=== PATIENT | male | born 1955 | race Caucasian/White ===

== ENCOUNTER 2016-09-05 11:18 | Outpatient (CLI) | payer MEDICARE, MEDICAID ==
[2016-09-05 16:51] LABS: ALT (SGPT) 28 U/L (8-55); AST (SGOT) 30 U/L (5-34); Albumin 3.9 g/dL (3.5-5.0); Alkaline Phosphatase 85 U/L (40-150); Anion Gap 15 mmol/L (10-20); BUN (Urea Nitrogen) 12 mg/dL (8.4-25.7); Bilirubin, Total 2.4 mg/dL (0.2-1.2); Calc. Creatinine Clearance 0 mL/min (70-130); Calcium 8.9 mg/dL (7.8-10.44); Carbon Dioxide 27 mmol/L (22-29); Chloride 103 mmol/L (98-107); Cholesterol 131 mg/dl (< 200 Desired); Estimated GFR-MDRD 48; Globulin 4.1 g/dL (2.4-3.5); Glucose 88 mg/dL (70-105); HDL Cholesterol 33 mg/dL (>60 Neg Risk); LDL Cholesterol, Calculated 73 mg/dL; Potassium 5.7 mmol/L (3.5-5.1); Sodium 139 mmol/L (136-145); Triglycerides 127 mg/dL (Less than 150)
[2016-09-05 18:19] LABS: #Basophils 0.1 thou/uL (0.0-0.2); #Eosinphils 0.1 thou/uL (0.0-0.7); #Lymphocytes 1.6 thou/uL (1.20-3.40); #Monocytes 0.4 thou/uL (0.11-0.59); #Neutrophils 3.1 thou/uL (1.40-6.50); %Basophils 2.7 % (0.0-1.0); %Eosinophils 1.4 % (0.0-10.0); %Lymphocytes 29.2 % (21.0-51.0); %Monocytes 7.5 % (0.0-10.0); %Neutrophils 59.2 % (42.0-75.0); Hemoglobin 19.9 g/dL (14.0-18.0); MDiff Complete? YES; Macrocytosis SLIGHT = 6-15 cells (100X) (0-5/hpf); Mean Corpuscular HGB CONC 32.3 g/dL (32.0-36.0); Mean Corpuscular Hemoglobin 33.7 pg (27.0-31.0); Mean Platelet Volume 8.4 fL (7.4-10.4); Platelet Count 204 thou/uL (130-400); RBC Distribution Width 12.6 % (11.5-14.5); RBC Morphology PATIENT HAS POLYCYTHEMIA; Red Blood Cell (RBC) Count 5.92 mill/uL (4.70-6.10); White Blood Cell (WBC) Count 5.3 thou/uL (4.8-10.8)
[2016-09-05 18:40] LABS: Creatinine, Urine 106.51 mg/dL (63-166); Microalbumin Urine Less than 1.0 mg/dL (0.5-50.0); Microalbumin/Creat Ratio 9.4 mg/g (Less than 30)
== END 2016-09-05 11:19 | disposition home or self-care (01) ==
LOC: LABLEX 11:18
PROVIDERS: ATTEND Family Medicine
DX: I12.9 Hypertensive chronic kidney disease with stage 1 through stage 4 chronic kidney disease, or unspecified chronic kidney disease (principal); N18.9 Chronic kidney disease, unspecified; E78.5 Hyperlipidemia, unspecified; E03.9 Hypothyroidism, unspecified; D75.1 Secondary polycythemia
CPT/HCPCS: 80053; 80061; 82043; 84443; 85025

== ENCOUNTER 2016-09-08 15:15 | Emergency (ER) | payer MEDICARE, MEDICAID ==
[2016-09-08 15:49] LABS: Band 1 % (5-11); Eosinophils 2 % (0-10); Hemoglobin 17.7 g/dL (14.0-18.0); Lymphocytes 27 % (21-51); MDiff Complete? YES; Macrocytosis SLIGHT = 6-15 cells (100X) (0-5/hpf); Mean Corpuscular HGB CONC 34.2 g/dL (32.0-36.0); Mean Corpuscular Hemoglobin 34.6 pg (27.0-31.0); Monocytes 9 % (0-10); Neutrophil 61 % (42-75); Platelet Count 206 thou/uL (130-400); RBC Distribution Width 12.2 % (11.5-14.5)
[2016-09-08 16:03] LABS: ALT (SGPT) 27 U/L (8-55); AST (SGOT) 31 U/L (5-34); Albumin 3.6 g/dL (3.5-5.0); Alkaline Phosphatase 71 U/L (40-150); Anion Gap 15 mmol/L (10-20); BUN (Urea Nitrogen) 14 mg/dL (8.4-25.7); Bilirubin, Total 1.7 mg/dL (0.2-1.2); Calc. Creatinine Clearance 0 mL/min (70-130); Calcium 8.9 mg/dL (7.8-10.44); Carbon Dioxide 24 mmol/L (22-29); Chloride 105 mmol/L (98-107); Estimated GFR-MDRD 47; Glucose 99 mg/dL (70-105); Magnesium 2.6 mg/dL (1.6-2.6); Potassium 4.7 mmol/L (3.5-5.1); Protein, Total 7.6 g/dL (6.0-8.3); Sodium 139 mmol/L (136-145)
== END 2016-09-08 16:13 | disposition home or self-care (01) ==
LOC: BURERS 15:15
DX: N18.9 Chronic kidney disease, unspecified (principal); E87.5 Hyperkalemia; E78.00 Pure hypercholesterolemia, unspecified; Q90.9 Down syndrome, unspecified; E80.4 Gilbert syndrome; E03.9 Hypothyroidism, unspecified
CPT/HCPCS: 36415; 80053; 83735; 85025

== ENCOUNTER 2016-09-15 08:51 | Outpatient (CLI) | payer MEDICARE, MEDICAID ==
[2016-09-15 10:05] LABS: ALT (SGPT) 32 U/L (8-55); AST (SGOT) 33 U/L (5-34); Albumin 4.2 g/dL (3.5-5.0); Alkaline Phosphatase 84 U/L (40-150); Anion Gap 13 mmol/L (10-20); BUN (Urea Nitrogen) 12 mg/dL (8.4-25.7); Bilirubin, Total 2.7 mg/dL (0.2-1.2); Calc. Creatinine Clearance 0 mL/min (70-130); Calcium 9.3 mg/dL (7.8-10.44); Carbon Dioxide 29 mmol/L (22-29); Chloride 103 mmol/L (98-107); Estimated GFR-MDRD 46; Glucose 85 mg/dL (70-105); Potassium 4.6 mmol/L (3.5-5.1); Protein, Total 8.2 g/dL (6.0-8.3); Sodium 140 mmol/L (136-145)
[2016-09-15 10:44] LABS: Hemoglobin 19.7 g/dL (14.0-18.0); Mean Corpuscular HGB CONC 33.5 g/dL (32.0-36.0); Mean Corpuscular Hemoglobin 34.4 pg (27.0-31.0); Mean Platelet Volume 9.9 fL (7.4-10.4); Platelet Count 195 thou/uL (130-400); RBC Distribution Width 12.2 % (11.5-14.5); Red Blood Cell (RBC) Count 5.73 mill/uL (4.70-6.10); White Blood Cell (WBC) Count 5.5 thou/uL (4.8-10.8)
[2016-09-15 17:35] LABS: Iron 73 ug/dL (65-175); Iron Binding Capacity, Total 240 mcg/dL (261-462)
[2016-09-15 17:53] LABS: Ferritin 46.68 ng/mL (22-322)
[2016-09-15 18:07] LABS: HBSAB Concentration 6.18 mIU/mL; Hep B Surf AB Non-Reactive (NonReactive)
[2016-09-15 19:14] LABS: Hep B Surf Ag Reactive S/CO (NonReactive)
[2016-09-15 19:15] LABS: HBSAg Index 1.35 S/CO (0-0.99)
--- NOTE | 2016-09-15 19:42 | ULT ---
RIGHT UPPER QUADRANT ULTRASOUND: Date: 09-15-16 Comparison: 12-07-15 FINDINGS: There has been no adverse interval change. The liver measures 14.1 cm in oblique sagittal length. In ternally, one sees no focal mass or dilated duct. It was commented on the prior ultrasound that the internal vessels of the liver seemed a bit more prominent in size than the study before. These vesse ls remain rather prominent in size today, though they are not much different than the last study. He patic portal flow is towards the liver as expected. The gallbladder was not visualized. The common bile duct was 6 mm in caliber which is borderline. Th e pancreas was completely obscured by gas as before. The right kidney showed no abnormality and was 8.3 cm long. IMPRESSION: No adverse change since the prior study. Hepatic vessels internally are larger than often seen, but no different than the last study. POS: HOME
== END 2016-09-15 08:52 | disposition home or self-care (01) ==
LOC: BURLAB 08:51
PROVIDERS: ATTEND Internal Medicine Gastroenterology
DX: B19.10 Unspecified viral hepatitis B without hepatic coma (principal); D75.1 Secondary polycythemia; R94.5 Abnormal results of liver function studies
CPT/HCPCS: 36415; 76705; 80053; 82105; 82728; 83516; 83540; 83550; 85027; 86038; 86706; 86707; 87340; 87517

== ENCOUNTER 2017-03-07 09:03 | Outpatient (CLI) | payer MEDICARE, MEDICAID ==
--- NOTE | 2017-03-07 19:37 | ULT ---
RIGHT UPPER QUADRANT ULTRASOUND 03/07/17 Comparison is made with a 09/15/16 study. The liver continues to appear normal and measures 12.7 cm in oblique sagittal length. No masses or di lated ducts were seen. The gallbladder was not visualized today. The common bile duct is 6 mm in michelle ad which is upper normal. Portal venous flow was towards the liver as expected. The right kidney mceca ears normal and was 8.1 cm in length. IMPRESSION: Unremarkable right upper quadrant ultrasound. No hepatic abnormalities of concern. Gallbladder not se en. POS: HOME
== END 2017-03-07 09:04 | disposition home or self-care (01) ==
LOC: BURULT 09:03
PROVIDERS: ATTEND Internal Medicine Gastroenterology
DX: Z12.11 Encounter for screening for malignant neoplasm of colon (principal); D75.1 Secondary polycythemia; B19.10 Unspecified viral hepatitis B without hepatic coma; R94.5 Abnormal results of liver function studies
CPT/HCPCS: 76705

== ENCOUNTER 2018-01-16 08:28 | Outpatient (CLI) | payer MEDICARE, MEDICAID ==
--- NOTE | 2018-01-16 10:20 | ULT ---
RIGHT UPPER QUADRANT ULTRASOUND: Date: 01/16/18 HISTORY: Hepatitis C. FINDINGS: Comparison made with exam of 03/07/17. The liver demonstrates homogeneous echotexture without focal mass or intrahepatic ductal dilatation. The gallbladder is not seen (not visualized on previous exam as well). The common duct measures 4.0 m m in diameter. The right kidney is normal. No free fluid is seen in Morison's pouch. The pancreas is not well visualized due to overlying bowel gas. IMPRESSION: No evidence of hepatic mass. POS: [facility]
[2018-01-16 17:50] LABS: ALT (SGPT) 14 U/L (8-55); AST (SGOT) 17 U/L (5-34); Albumin 3.4 g/dL (3.4-4.8); Alkaline Phosphatase 90 U/L (40-150); Anion Gap 13 mmol/L (10-20); BUN (Urea Nitrogen) 18 mg/dL (8.4-25.7); Bilirubin, Total 1.2 mg/dL (0.2-1.2); Calc. Creatinine Clearance 0 mL/min (70-130); Calcium 8.8 mg/dL (7.8-10.44); Carbon Dioxide 29 mmol/L (23-31); Chloride 102 mmol/L (98-107); Estimated GFR-MDRD 48; Globulin 4.1 g/dL (2.4-3.5); Glucose 86 mg/dL (80-115); Potassium 4.2 mmol/L (3.5-5.1); Protein, Total 7.5 g/dL (5.8-8.1); Sodium 140 mmol/L (136-145)
[2018-01-16 18:04] LABS: HBSAg Index 0.71 S/CO (0-0.99); Hep B Surf Ag Non-Reactive S/CO (NonReactive)
[2018-01-16 18:08] LABS: #Basophils 0.1 thou/uL (0.0-0.2); #Eosinphils 0.5 thou/uL (0.0-0.7); #Lymphocytes 1.9 thou/uL (1.20-3.40); #Monocytes 0.5 thou/uL (0.11-0.59); #Neutrophils 3.8 thou/uL (1.40-6.50); %Eosinophils 6.9 % (0.0-10.0); %Lymphocytes 27.5 % (21.0-51.0); %Neutrophils 56.6 % (42.0-75.0); Hemoglobin 16.4 g/dL (14.0-18.0); Mean Corpuscular HGB CONC 32.6 g/dL (32.0-36.0); Mean Corpuscular Hemoglobin 34.2 pg (27.0-31.0); Mean Platelet Volume 8.4 fL (7.4-10.4); Platelet Count 301 thou/uL (130-400); RBC Distribution Width 13.1 % (11.5-14.5); Red Blood Cell (RBC) Count 4.79 mill/uL (4.70-6.10); White Blood Cell (WBC) Count 6.7 thou/uL (4.8-10.8)
[2018-01-16 19:18] LABS: HBSAB Concentration 10.47 mIU/mL; Hep B Surf AB EQUIVOCAL (NonReactive)
[2018-01-19 14:12] LABS: HBV as IU/mL HBV DNA not detected IU/mL (.)
== END 2018-01-16 08:29 | disposition home or self-care (01) ==
LOC: BURULT 08:28
PROVIDERS: ATTEND Internal Medicine Gastroenterology
DX: B19.10 Unspecified viral hepatitis B without hepatic coma (principal); B18.1 Chronic viral hepatitis B without delta-agent
CPT/HCPCS: 36415; 76705; 80053; 82105; 85025; 86706; 86707; 87340; 87350; 87517

== ENCOUNTER 2019-05-27 10:08 | Outpatient (CLI) | payer MEDICARE, MEDICAID ==
--- NOTE | 2019-05-27 12:42 | ULT ---
Sonogram right upper quadrant HISTORY: Abnormal liver function tests. FINDINGS: Gallbladder surgically absent. Common duct is 0.6 cm. The liver has a normal appearance wit hout focal mass or intrahepatic biliary dilatation. Left lobe partially obscured by bowel gas. No free fluid. IMPRESSION: Status post cholecystectomy. No evidence of acute biliary obstruction. Normal sonographic appearance of the liver.
[2019-05-27 16:32] LABS: ALT (SGPT) 22 U/L (8-55); AST (SGOT) 22 U/L (5-34); Albumin 3.6 g/dL (3.4-4.8); Alkaline Phosphatase 93 U/L (40-110); Bilirubin, Direct 0.7 mg/dL (0.1-0.3); Bilirubin, Total 2.2 mg/dL (0.2-1.2); Protein, Total 7.5 g/dL (5.8-8.1)
[2019-05-28 14:57] LABS: Ref Lab Test Ordered HBV DNA QUANT; Reference Lab Name LABCORP
== END 2019-05-27 10:09 | disposition home or self-care (01) ==
LOC: BURULT 10:08
PROVIDERS: ATTEND Internal Medicine Gastroenterology
DX: E80.4 Gilbert syndrome (principal); B19.10 Unspecified viral hepatitis B without hepatic coma; Z90.49 Acquired absence of other specified parts of digestive tract
CPT/HCPCS: 36415; 76705; 80076; 82105

== ENCOUNTER 2020-03-07 19:57 | Inpatient (IN) | payer MEDICARE, MEDICAID ==
[2020-03-07 20:48] LABS: Hemoglobin 18.4 g/dL (14.0-18.0); Mean Corpuscular HGB CONC 32.7 g/dL (32.0-36.0); Mean Corpuscular Hemoglobin 34.1 pg (27.0-31.0); Mean Platelet Volume 9.5 fL (7.4-10.4); Platelet Count 203 thou/uL (130-400); RBC Distribution Width 13.6 % (11.5-14.5); White Blood Cell (WBC) Count 18.4 thou/uL (4.8-10.8)
[2020-03-07 21:02] LABS: ALT (SGPT) 25 U/L (8-55); AST (SGOT) 28 U/L (5-34); Albumin 3.6 g/dL (3.4-4.8); Alkaline Phosphatase 82 U/L (40-110); Anion Gap 17 mmol/L (10-20); BUN (Urea Nitrogen) 18 mg/dL (8.4-25.7); Bilirubin, Total 1.6 mg/dL (0.2-1.2); Calc. Creatinine Clearance 0 mL/min (70-130); Calcium 8.7 mg/dL (7.8-10.44); Carbon Dioxide 24 mmol/L (23-31); Chloride 96 mmol/L (98-107); Globulin 4.6 g/dL (2.4-3.5); Glucose 163 mg/dL (80-115); Potassium 4.3 mmol/L (3.5-5.1); Protein, Total 8.2 g/dL (5.8-8.1); Sodium 133 mmol/L (136-145)
[2020-03-07 21:10] LABS: Band 4 % (5-11); Lymphocytes 2 % (21-51); MDiff Complete? YES; Monocytes 3 % (0-10); Neutrophil 91 % (42-75); Platelet Morphology Comment Appears Adequate; RBC Morphology Normal
--- NOTE | 2020-03-07 21:12 | CT ---
CT BRAIN WITHOUT CONTRAST: Date: 03-07-[address] was done for evaluation of a syncopal episode. FINDINGS: The ventricles are normal in size for age and atrophy. No intracranial bleeding, mass, or sign of acu te stroke was found. Atrophy is a little more prominent than usual for age. The skull appears intact and the visible paranasal sinuses are clear. Each globe is calcified to some extent and the right jada be is flattened. This is presumed to be chronic. IMPRESSION: No acute intracranial findings. POS: HOME
[2020-03-07] MEDS ORDERED: cefTRIAXone\\ROCEPHIN 1 GM VIAL ONE (21:13)
--- NOTE | 2020-03-07 21:14 | RAD ---
PORTABLE CHEST: Date: 03-07-2020 An AP portable film at 2047 is presented with no prior films available for comparison. FINDINGS: The heart is normal in size. There is no major lobar infiltrate or effusion. Minimal haziness in the left base is probably due to the patient being turned to the right slightly. There is no congestive f inding. IMPRESSION: No definite acute change. POS: HOME
[2020-03-07 21:18] LABS: Bilirubin Negative (Negative); Blood, Urine Negative (Negative); Clarity Clear (Clear); Glucose, Urine (Dipstick) Negative (Negative); Ketone, Urine Negative (Negative); Leukocyte Negative (Negative); Nitrite Negative (Negative); Protein, Urine (Dipstick) Negative (Neg-Trace); Urobilinogen 0.2 mg/dL (Less than 2)
[2020-03-07 22:27] LABS: SARS-CoV-2 NAA Rapid Test DETECTED (NotDetected)
[2020-03-07 23:28] VITALS: BMI 26.2
[2020-03-08] MEDS: Sodium Chloride 0.9% 1,000 ML IV SCH ×2 (00:57→07:25)
[2020-03-08] MEDS ORDERED: Piperacillin/Tazobactam 3.375 GM in Sodium Chloride 0.9% 100 ML IVPB SCH ×2 (02:00→12:00)
[2020-03-08] MEDS ORDERED: Mometasone Furoate 120 PUFF 220 MCG INH SCH (07:00)
[2020-03-08] MEDS ORDERED: Sodium Chloride 0.9% 1,000 ML IV SCH (07:08)
[2020-03-08] MEDS: Fluticasone Propionate Nasal Spray 16 gm Bottle NASAL SCH (08:00)
[2020-03-08] MEDS: Saccharomyces boulardii 250 MG CAP PO SCH (08:01)
[2020-03-08] MEDS: Levothyroxine Sodium 50 MCG TAB PO SCH (08:02)
[2020-03-08] MEDS: Dexamethasone 4 MG TAB PO SCH (08:02)
[2020-03-08] MEDS: Aspirin 81 mg Enteric Coated Tablet PO SCH (08:02)
[2020-03-08] MEDS ORDERED: Aspirin 81 mg Enteric Coated Tablet PO SCH (09:00)
[2020-03-08] MEDS ORDERED: FLUTICASONE PROPIONATE NS SCH (09:00)
--- NOTE | 2020-03-08 11:03 | HP ---
CHIEF COMPLAINT: Fever and syncope. HISTORY OF PRESENT ILLNESS: This is a 64-year-old male with underlying Down syndrome, blindness, and partial deafness who is cared for by his welfare interviewer of 20+ years, Jamilah Singleton, who is with him at present who presented acutely to the [facility] Emergency Department last night. Per the patient's welfare interviewer while after just finishing his evening meal, he had a syncopal episode, falling forward from his chair with subsequent seizure-like activity thereafter. In the emergency department, the patient was found to be tachycardic and febrile. Workup revealed leukocytosis with left shift and elevated lactic acid level. Imaging including a chest x-ray and brain CT were reassuring, and there was no obvious source of bacterial infection. The patient was swabbed for influenza and COVID, and COVID test returned positive. The patient was admitted to the floor and started on broad-spectrum IV antibiotic therapy with vancomycin and Rocephin, and normal saline IV fluids as well. As of this morning, patient's welfare interviewer reports that the patient had been in his usual state of health until the episode occurring last night. His intake has been at baseline as has his output. His behavior has been unchanged, and he has complained of no pain. Only reported symptoms would be that of what the welfare interviewer describes as the patient has seasonal allergies. She does report that he was treated for urinary tract infection within the last month, and his urinalysis is notably normal here. Patient's welfare interviewer reports no prior history of seizures. At present, the patient is comfortable and is stable on room air. 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 SURGICAL HISTORY: Bilateral enucleation, urethral surgery for stricture. SOCIAL HISTORY: The patient lives in [place] with his caregiver, Jamilah Singleton for the last 20+ years. Nonsmoker, with no alcohol or illicit drug use. ALLERGIES: AMOXICILLIN/AUGMENTIN. FAMILY HISTORY: Noncontributory. HOME MEDICATIONS: 1. Rosuvastatin 10 mg q.h.s. 2. Levothyroxine 50 mcg p.o. daily. 3. Aspirin 81 mg 2 tabs daily. 4. Fluticasone 1-2 sprays each nostril daily. REVIEW OF SYSTEMS: Unable to obtain from patient. LABORATORY DATA: White blood cell count is 18.4, hemoglobin is 18.4, hematocrit 56.3, platelets 203. Sodium 133, potassium 4.3, BUN is 18, creatinine 1.5, GFR is 47, glucose 163. Initial lactic acid 4.2, its 3.0 upon recheck. Bilirubin 1.6, AST 28, ALT 25. Urine is clear with no glucose, no ketones, no blood, no nitrites or leukocyte esterase. Influenza is negative. COVID is positive. IMAGING: On 03/07/2020, brain CT shows no acute intracranial findings. On 03/07/2020, chest x-ray shows no definite acute change. PHYSICAL EXAMINATION: VITAL SIGNS: Temperature is 101.4, pulse is 90, respiratory rate is 20, oxygen is 96% on room air, blood pressure is 139/64. GENERAL: Patient is febrile and warm to touch. He is in no acute distress. HEAD, EYES, EARS, NOSE, AND THROAT: He has a small soft tissue injury above the right eyebrow. He has bilateral enucleation of the eyes with the eyelids matted closed over the orbits. He has dry mucous membranes. NECK: Supple with no meningeal signs. No lymphadenopathy. No JVD. CARDIOVASCULAR: Regular rate and rhythm with normal S1, S2. RESPIRATORY: Clear to auscultation bilaterally without wheezes, rales, or rhonchi. ABDOMEN: Soft and nontender to palpation. No rebound or guarding. EXTREMITIES: No clubbing, cyanosis, or edema. SKIN: No rashes. NEUROLOGIC: Nonfocal. ASSESSMENT AND PLAN: 1. Sepsis, unclear bacterial cause at this point, but the patient does have leukocytosis with left shift. We will repeat the patient's CBC tomorrow morning and follow up the patient's blood and urine cultures. He has been started on broad-spectrum antibiotics with vancomycin and Rocephin. We will have the pharmacy to titrate vancomycin per protocol. We will provide Tylenol for fever as needed. I suspect that this seizure-like activity was secondary to patient's fever. 2. COVID positive, this is felt to be contracted by the patient's roommate who works at [employer] as the patient does not leave the home. He is stable on room air. We will provide dexamethasone and the aforementioned antibiotics. He is on isolation precautions. 3. Dehydration. Patient received normal saline, IV fluids overnight at 150 mL an hour. We will decrease this to 75 mL an hour and monitor the patient's intake. 4. Down syndrome. Patient is largely at his baseline per welfare interviewer and requires 24/7 care. 5. Dyslipidemia. We will resume the patient's statin. 6. Hypothyroidism. I will resume the patient's levothyroxine. 7. Chronic kidney disease, stage 3. This appears to be at the patient's baseline per labs. 8. Prophylaxis. We will provide Lovenox for deep venous thrombosis prophylaxis, pantoprazole for gastrointestinal prophylaxis, and Florastor to serve as probiotic while on antibiotic therapy. 9. Code status is full. Job ID: [id number] MTDD
[2020-03-08] MEDS: cefTRIAXone\\ROCEPHIN 1 GM in Sodium Chloride 0.9% 100 ML IVPB SCH (20:58)
[2020-03-08] MEDS: Enoxaparin Sodium 40 MG/0.4 ML SYRINGE SC SCH (20:59)
[2020-03-08] MEDS ORDERED: Rosuvastatin 10 MG TAB PO SCH (21:00)
[2020-03-08] MEDS: Rosuvastatin 10 MG TAB PO SCH (21:00)
[2020-03-08] MEDS ORDERED: Vancomycin HCl 1 GM in Sodium Chloride 0.9% 250 ML 250 ML IVPB SCH (22:00)
[2020-03-09 05:27] LABS: Hemoglobin 15.8 g/dL (14.0-18.0); Mean Corpuscular HGB CONC 34.1 g/dL (32.0-36.0); Mean Corpuscular Hemoglobin 34.5 pg (27.0-31.0); Mean Platelet Volume 9.1 fL (7.4-10.4); Platelet Count 154 thou/uL (130-400); RBC Distribution Width 13.5 % (11.5-14.5); Red Blood Cell (RBC) Count 4.58 mill/uL (4.70-6.10); White Blood Cell (WBC) Count 13.8 thou/uL (4.8-10.8)
[2020-03-09 05:35] LABS: ALT (SGPT) 20 U/L (8-55); AST (SGOT) 22 U/L (5-34); Albumin 2.8 g/dL (3.4-4.8); Alkaline Phosphatase 53 U/L (40-110); Anion Gap 11 mmol/L (10-20); BUN (Urea Nitrogen) 11 mg/dL (8.4-25.7); Bilirubin, Total 0.5 mg/dL (0.2-1.2); Calc. Creatinine Clearance 73 mL/min (70-130); Calcium 7.9 mg/dL (7.8-10.44); Carbon Dioxide 23 mmol/L (23-31); Chloride 109 mmol/L (98-107); Globulin 3.6 g/dL (2.4-3.5); Glucose 104 mg/dL (80-115); Potassium 4.2 mmol/L (3.5-5.1); Protein, Total 6.4 g/dL (5.8-8.1); Sodium 139 mmol/L (136-145)
[2020-03-09 06:23] LABS: Band 10 % (5-11); Lymphocytes 6 % (21-51); MDiff Complete? YES; Manual Diff?? YES; Monocytes 3 % (0-10); Neutrophil 81 % (42-75)
[2020-03-09] MEDS: Aspirin 81 mg Enteric Coated Tablet PO SCH (08:20)
[2020-03-09] MEDS: Levothyroxine Sodium 50 MCG TAB PO SCH (08:20)
[2020-03-09] MEDS: Saccharomyces boulardii 250 MG CAP PO SCH (08:20)
[2020-03-09] MEDS: Fluticasone Propionate Nasal Spray 16 gm Bottle NASAL SCH (08:21)
[2020-03-09] MEDS: Dexamethasone 4 MG TAB PO SCH (08:21)
[2020-03-09] MEDS ORDERED: Acetaminophen 325 MG TAB PO PRN (16:30)
[2020-03-09] MEDS ORDERED: VANCOMYCIN IVPB PRN (16:35)
[2020-03-09] MEDS: Vancomycin HCl 1 GM in Sodium Chloride 0.9% 250 ML 250 ML IVPB SCH (18:07)
[2020-03-09] MEDS: Enoxaparin Sodium 40 MG/0.4 ML SYRINGE SC SCH ×2 (21:08→21:51)
[2020-03-09] MEDS: Rosuvastatin 10 MG TAB PO SCH (21:08)
[2020-03-09] MEDS: cefTRIAXone\\ROCEPHIN 1 GM in Sodium Chloride 0.9% 100 ML IVPB SCH (21:08)
[2020-03-10] MEDS: Vancomycin HCl 1 GM in Sodium Chloride 0.9% 250 ML 250 ML IVPB SCH (06:06)
[2020-03-10 06:37] VITALS: BP 122/60; TEMP 96.6
[2020-03-10 08:21] LABS: Mean Corpuscular Hemoglobin 33.9 pg (27.0-31.0); Mean Platelet Volume 9.6 fL (7.4-10.4); Platelet Count 187 thou/uL (130-400); RBC Distribution Width 13.5 % (11.5-14.5); Red Blood Cell (RBC) Count 4.72 mill/uL (4.70-6.10); White Blood Cell (WBC) Count 13.2 thou/uL (4.8-10.8)
[2020-03-10 08:23] LABS: Anion Gap 13 mmol/L (10-20); BUN (Urea Nitrogen) 11 mg/dL (8.4-25.7); Calc. Creatinine Clearance 68 mL/min (70-130); Calcium 8.2 mg/dL (7.8-10.44); Carbon Dioxide 27 mmol/L (23-31); Chloride 103 mmol/L (98-107); Glucose 82 mg/dL (80-115); Potassium 3.9 mmol/L (3.5-5.1); Sodium 139 mmol/L (136-145)
[2020-03-10] MEDS ORDERED: Cefdinir 300 MG CAP PO SCH (09:00)
[2020-03-10] MEDS: Levothyroxine Sodium 50 MCG TAB PO SCH (09:09)
[2020-03-10] MEDS: Saccharomyces boulardii 250 MG CAP PO SCH (09:09)
[2020-03-10] MEDS: Aspirin 81 mg Enteric Coated Tablet PO SCH (09:09)
[2020-03-10] MEDS: Dexamethasone 4 MG TAB PO SCH (09:09)
[2020-03-10] MEDS: Fluticasone Propionate Nasal Spray 16 gm Bottle NASAL SCH (09:12)
--- NOTE | 2020-03-11 10:32 | DIS ---
DATE OF ADMISSION: 03/07/2020 DATE OF DISCHARGE: 03/10/2020 DISCHARGE DIAGNOSES: Sepsis fever, COVID-19 positive. HOSPITAL COURSE AND HISTORY OF PRESENT ILLNESS: A 64-year-old male patient with underlying Down syndrome, blindness, and partial deafness, who is cared for by his plant technical specialist brought him to the emergency room after he experienced a brief syncopal episode and what she thought might have been a seizure. He arrived to the emergency room with 102 fever, leukocytosis, and neutrophils in the 90s with 5 bands. His urine was clear. So far, blood cultures are clear and his chest x-ray was clear. He had a brain CT as well, which was normal. He was started on empiric antibiotics including vancomycin and Rocephin. On day #3, he was no longer running fever and his white count had come down from 18.4 to 13.2, normal renal function yesterday. He was also afebrile. His mom endorsed that he had requested to be discharged home, so he was discharged home on oral antibiotics after having pulled his IV out the morning of discharge. DIET: Regular diet. ACTIVITY: As tolerated. ALLERGIES: AMOXICILLIN. CODE STATUS: Full. He will go home on home medications as follows 81 mg aspirin, fluticasone daily, levothyroxine 50 mcg daily, acetaminophen as needed for pain or fever. He will continue Decadron 4 mg four more days p.o. and cefdinir 300 mg b.i.d. x10 days. Those prescriptions were sent to [facility]. He will follow up in 10 to 14 days with his PCP, Rosita Sandy. He will continue to quarantine for full 14 days from the date of his COVID positive test, which was 03/07/2020. He exhibited no respiratory symptoms and maintained his saturation rate throughout his hospital stay. Job ID: [id number]
== END 2020-03-10 11:30 | disposition home or self-care (01) | DRG 871 ==
LOC: BURERS 19:57 → BURMED 21:35
PROVIDERS: ADMIT Family Medicine; ATTEND Family Medicine
DX: A41.89 Other specified sepsis (principal); U07.1 COVID-19; S06.9X1A Unspecified intracranial injury with loss of consciousness of 30 minutes or less, initial encounter; E03.9 Hypothyroidism, unspecified; E80.4 Gilbert syndrome; E78.00 Pure hypercholesterolemia, unspecified; G47.33 Obstructive sleep apnea (adult) (pediatric); H54.7 Unspecified visual loss; H91.91 Unspecified hearing loss, right ear; D75.1 Secondary polycythemia; E86.0 Dehydration; N18.30 Chronic kidney disease, stage 3 unspecified; E11.22 Type 2 diabetes mellitus with diabetic chronic kidney disease; Z85.038 Personal history of other malignant neoplasm of large intestine; Z88.1 Allergy status to other antibiotic agents; Z88.8 Allergy status to other drugs, medicaments and biological substances; Z79.82 Long term (current) use of aspirin; Z79.890 Hormone replacement therapy; Q90.9 Down syndrome, unspecified; Z79.899 Other long term (current) drug therapy
CPT/HCPCS: 0240U; 36415; 70450; 71045; 80048; 80053; 81003; 83605; 85025; 85027; 87086; 93005; 94760; 96365; 96367; J0696; J1650; J2543; J3370; J3490; J7050; J8540